=== PATIENT | female | born 2000 | race Caucasian/White ===

== ENCOUNTER 2022-03-19 17:52 | Emergency (ER) | payer MEDICAID ==
[~2022-03-19] VITALS: Ht 154.9 cm; Wt 65.0 kg
[2022-03-19 20:03] VITALS: BP 99/61
== END 2022-03-19 20:22 | disposition home or self-care (01) ==
LOC: ER 17:53
DX: O26.892 Other specified pregnancy related conditions, second trimester (principal); R50.9 Fever, unspecified; Z3A.18 18 weeks gestation of pregnancy
CPT/HCPCS: 99281